=== PATIENT | female | born 1945 | race Caucasian/White ===

== ENCOUNTER → 2016-10-01 | Outpatient (CLI) | payer OTHER | LOC: FLAB 13:46 | PROVIDERS: ATTEND Physical Medicine & Rehabilitation | DX: M50.322 Other cervical disc degeneration at C5-C6 level (principal); M50.323 Other cervical disc degeneration at C6-C7 level ==

== ENCOUNTER → 2017-09-03 | Outpatient (CLI) | payer OTHER | LOC: CIMAGING 07:20 | PROVIDERS: ATTEND Family Medicine | DX: K80.20 Calculus of gallbladder without cholecystitis without obstruction (principal) | CPT/HCPCS: 76700-PO ==

== ENCOUNTER → 2018-05-06 | Outpatient (CLI) | payer OTHER | LOC: CIMAGING 07:56 | PROVIDERS: ATTEND Internal Medicine Cardiovascular Disease | DX: K80.20 Calculus of gallbladder without cholecystitis without obstruction (principal); K76.0 Fatty (change of) liver, not elsewhere classified; I34.0 Nonrheumatic mitral (valve) insufficiency; R09.89 Other specified symptoms and signs involving the circulatory and respiratory systems | CPT/HCPCS: 76700-PO ==

== ENCOUNTER 2018-06-27 21:09 | Observation (INO) | payer OTHER ==
--- NOTE | 2018-06-27 21:32 | EDPHY ---
H & P Time Seen by Provider: 06/27/18 21:31 HPI/ROS: Chief complaint. Racing heart HPI. Patient is 72-year-old female with fast heart rate that began this afternoon. She has some chest tightness that goes to the left scapula. No shortness of breath. No change with exertion however she does feel lightheaded. No fever cough. No unusual leg pain or swelling. Last night she had a sharp pain to her left scientology but did not have change in her vision slurred speech focal weakness or paresthesias. She took a hydrocodone. The headache was gone today and has not recurred. She does have a history of palpitations and takes metoprolol for this ROS 10 systems were reviewed and negative with the exception of the elements mentioned in the history of present illness Past Medical/Surgical History: Palpitations and depression Social History: , nonsmoker, no alcohol Physical Exam: General Appearance: Alert well-developed female mild distress vital signs significant for blood pressure 161/145 with heart rate 147 Eyes: Pupils equal and round no pallor or injection. ENT, Mouth: Mucous membranes are moist. Respiratory: There are no retractions, lungs are clear to auscultation. Cardiovascular: Irregularly irregular rate and rhythm Gastrointestinal: Abdomen is soft and nontender, no masses, bowel sounds normal. Neurological: Awake and alert, sensory and motor exams grossly normal. Skin: Warm and dry, no rashes. Musculoskeletal: Neck is supple nontender. Extremities symmetrical, full range of motion. Psychiatric: Patient is oriented X 3, there is no agitation. Constitutional: Initial Vital Signs Temperature (C) 36.6 C 06/27/18 21:26 Heart Rate 140 H 06/27/18 21:26 Respiratory Rate 20 06/27/18 21:26 Blood Pressure 196/143 H 06/27/18 21:26 O2 Sat (%) 96 06/27/18 21:26 O2 Delivery Mode Room Air Allergies/Adverse Reactions: No Known Allergies Allergy (Unverified 06/27/18 21:21) Home Medications: Medication Instructions Recorded Butal/Asp/Caffeine-Fiorinal 06/27/18 [Fiorinal 50-325-40 mg Cap] Hydrocodone/Acetaminophen [Vicodin 06/27/18 5-300 mg Tablet] Metoprolol Succinate Xr [Toprol Xl 06/27/18 25 mg (*)] Metoprolol Succinate Xr [Toprol Xl 06/27/18 25 mg (*)] Topical Thc 06/27/18 buPROPion [Wellbutrin 75mg (*)] 150 mg 06/27/18 lamoTRIgine [Lamictal] 06/27/18 traZODone [traZODONE 50MG (*)] 06/27/18 Medical Decision Making - Diagnostics EKG Interpretation: EKG interpreted by me shows atrial fibrillation with left axis deviation, LVH by voltage. PVCs are noted. Ventricular response 134 Imaging Results: Imaging Impressions Chest X-Ray 06/27/18 21:44 Impression: Suspect cardiomegaly. No evidence for failure. Procedures: IV normal saline, monitor Diltiazem bolus and drip ED Course/Re-evaluation: Point of care CBC shows a 4.8 for white blood cell count hematocrit is 41.6 Point of care metabolic panel shows a potassium of 3.1. Patient is given 20 mEq of potassium orally. Lovenox subcutaneously Patient, , and I discussed laboratory evaluation EKG findings, chest x- ray. We discussed treatment plan including recommendation for admission. They expressed understanding and agreement I consulted discussed case with Dr. Wesley, hospitalist, who agrees to the admission Differential Diagnosis: New onset atrial fibrillation with rapid ventricular rate. Patient apparently has a history of palpitations and has been on metoprolol for this. I considered acute coronary syndrome. She has a mildly low potassium. She has been given potassium supplementation. - Data Points Laboratory Results: 06/27/18 22:30 POC Sodium 141 mEq/L mEq/L (135-145) POC Potassium 3.1 mEq/L L mEq/L (3.3-5.0) POC Chloride 104.0 mEq/L mEq/L (97-110) POC Total CO2 28 mEq/L mEq/L (22-31) POC BUN 14 mg/dL mg/dL (7-23) POC Creatinine 0.6 mg/dL mg/dL (0.6-1.0) POC Glucose 79 mg/dL mg/dL (70-100) POC Calcium 9.8 mg/dL mg/dL (8.5-10.4) Medications Given: Discontinued Medications Diltiazem HCl (Cardizem 25 Mg/5 Ml Vial) 20 mg IVP EDNOW ONE Stop: 06/27/18 21:44 Last Admin: 06/27/18 21:58 Dose: 20 mg Diltiazem HCl 125 mg/ Sodium (Chloride) 125 mls @ 0 mls/hr IV EDNOW ONE; Titrate PRN Reason: Protocol Stop: 06/27/18 21:44 Last Admin: 06/27/18 22:19 Dose: 125 mls Sodium Chloride (Ns) 1,000 mls @ 0 mls/hr IV EDNOW ONE; Wide Open PRN Reason: Protocol Stop: 06/27/18 21:44 Last Admin: 06/27/18 21:56 Dose: 1,000 mls Point of Care Test Results: CBC CBC Collection Date 06/27/18 CBC Collection Time 21:27 WBC 4.84 RBC 4.07 HGB 14.1 HCT 41.6 PLT 182 Neut # 1.74 Neut 35.9 LYMPH # 2.39 LYMPH 49.4 MCV 102.2 Chemistry 06/27/18 22:30 POC Sodium 141 mEq/L mEq/L (135-145) POC Potassium 3.1 mEq/L L mEq/L (3.3-5.0) POC Chloride 104.0 mEq/L mEq/L (97-110) POC Total CO2 28 mEq/L mEq/L (22-31) POC BUN 14 mg/dL mg/dL (7-23) POC Creatinine 0.6 mg/dL mg/dL (0.6-1.0) POC Glucose 79 mg/dL mg/dL (70-100) POC Calcium 9.8 mg/dL mg/dL (8.5-10.4) Departure - Departure Disposition: [facility] Clinical Impression: Atrial fibrillation Qualifiers: Atrial fibrillation type: unspecified Qualified Code(s): I48.91 - Unspecified atrial fibrillation Condition: Fair
[2018-06-27] MEDS ORDERED: DILTIAZEM 125 MG/25 ML VIAL IV ONE (21:35)
[2018-06-27] MEDS ORDERED: DILTIAZEM 25 MG/5 ML VIAL IVP ONE ×2 (21:36→21:43)
[2018-06-27] MEDS ORDERED: DILTIAZEM 125 MG in NS 100 ML IV ONE (21:43)
[2018-06-27] MEDS ORDERED: NS 1,000 ML IV ONE (21:43)
[2018-06-27] MEDS ORDERED: POTASSIUM CL 20 MEQ TAB PO ONE (22:46)
[2018-06-27] MEDS ORDERED: ENOXAPARIN 60 MG/0.6 ML SYR SC ONE (22:50)
--- NOTE | 2018-06-27 23:09 | CPEKG ---
Test Reason : OPEN Blood Pressure : / mmHG Vent. Rate : 134 BPM Atrial Rate : 146 BPM P-R Int : 084 ms QRS Dur : 092 ms QT Int : 330 ms P-R-T Axes : -55 000 128 degrees QTc Int : 493 ms Atrial fibrillation Multiple ventricular premature complexes LVH with secondary repolarization abnormality Borderline prolonged QT interval Confirmed by Dawson Roman ([id number]) on 06/27/2018 11:08:53 PM Referred By: PHYSICIAN ED Confirmed By:Dawson Roman
[2018-06-28] MEDS ORDERED: ONDANSETRON 4 MG/2 ML VIAL IVP PRN (00:27)
[2018-06-28] MEDS ORDERED: ACETAMINOPHEN 325 MG TAB PO PRN (00:27)
[2018-06-28] MEDS ORDERED: ONDANSETRON DISINTEGRATING 4 MG TAB PO PRN (00:27)
[2018-06-28] MEDS ORDERED: DILTIAZEM 125 MG in D5W 125 ML IV SCH (00:30)
--- NOTE | 2018-06-28 01:08 | PDGENHP ---
History and Physical - Chief Complaint Palpitations - History of Present Illness 72 yo F w/ hx of MR (MVP) and PVCs presents with feeling of heart racing. The patient was in a movie when she felt her heart racing. She also felt nauseous. She tells me she has felt like this before but only for short periods that usually self-resolve. Today, however, her symptoms persisted so she presented to the [facility]. She denies recent illness, trauma, surgery, etc. She denies sick contacts as well. Of note, she has a hx of PVCs diagnosed via Holter monitor in October of 2017. Her symptoms improved with low dose beta amy. Her Holter monitor demonstrated AF. At the [facility] she was noted to be in AF w/ RVR on presentation. She is being admitted for management of this. Case discussed with Dr. Roman; records reviewed and summarized above. History Information - Allergies/Home Medication List Allergies/Adverse Reactions: No Known Allergies Allergy (Unverified 06/27/18 21:21) Home Medications: Butal/Asp/Caffeine-Fiorinal [Fiorinal 50-325-40 mg Cap] 06/27/18 [Last Taken Unknown] Hydrocodone/Acetaminophen [Vicodin 5-300 mg Tablet] 06/27/18 [Last Taken Unknown] Metoprolol Succinate Xr [Toprol Xl 25 mg (*)] 06/27/18 [Last Taken Unknown] Metoprolol Succinate Xr [Toprol Xl 25 mg (*)] 06/27/18 [Last Taken Unknown] Topical Thc 06/27/18 [Last Taken Unknown] buPROPion [Wellbutrin 75mg (*)] 150 mg 06/27/18 [Last Taken Unknown] lamoTRIgine [Lamictal] 06/27/18 [Last Taken Unknown] traZODone [traZODONE 50MG (*)] 06/27/18 [Last Taken Unknown] I have personally reviewed and updated: family history, medical history - Past Medical History Additional medical history: Mitral valve prolapse. PVCs - Surgical History Additional surgical history: Cataract surgery. Varicose vein ablation - Family History Positive for: CAD - Social History Smoking Status: Never smoked Review of Systems Review of Systems: ROS: 10pt was reviewed & negative except for what was stated in HPI & below Physical Exam Physical Exam: Temp Pulse Resp BP Pulse Ox 36.4 C 105 H 14 137/92 H 93 06/28/18 00:28 06/28/18 00:28 06/28/18 00:28 06/28/18 00:28 06/28/18 00:28 Constitutional: no apparent distress, not in pain Eyes: PERRL, EOMI Ears, Nose, Mouth, Throat: moist mucous membranes, no oral mucosal ulcers Cardiovascular: irregularly irregular, tachycardia Respiratory: no respiratory distress, clear to auscultation Gastrointestinal: normoactive bowel sounds, soft, non-tender abdomen Skin: warm, normal color Musculoskeletal: full muscle strength, no muscle tenderness Neurologic: AAOx3, CN II-XII Intact Psychiatric: interacting appropriately, not anxious Lab Data & Imaging Review POC Sodium 141 mEq/L (135-145) 06/27/18 22:30 POC Potassium 3.1 mEq/L (3.3-5.0) L 06/27/18 22:30 POC Chloride 104.0 mEq/L (97-110) 06/27/18 22:30 POC Total CO2 28 mEq/L (22-31) 06/27/18 22:30 POC BUN 14 mg/dL (7-23) 06/27/18 22:30 POC Creatinine 0.6 mg/dL (0.6-1.0) 06/27/18 22:30 POC Glucose 79 mg/dL (70-100) 06/27/18 22:30 POC Calcium 9.8 mg/dL (8.5-10.4) 06/27/18 22:30 POC Troponin I 0.02 ng/mL (0.00-0.08) 06/27/18 22:56 Imaging Review: Imaging Impressions Chest X-Ray 06/27/18 21:44 Impression: Suspect cardiomegaly. No evidence for failure. Visualized and Interpreted EKG results: Yes EKG Interpretation: Positive for: other (AF w/ RVR) Assessment & Plan Assessment: 72 yo F w/ hx of MR/MVP and PVCs presents with new AF w/ RVR. Plan: 1. Paroxysmal AF - New diagnosis for this patient; complicated by RVR on admission. She has prior hx of PVCs diagnosed via Holter monitor in October of 2017 but no prior AF hx. [id number] of 2 for only age and female sex. She is on low dose beta amy as outpatient for hx of PVCs. No symptoms to suggest ischemia or heart failure at this time. 09/02 stress test did not reveal ischemia. - Admit to PCU for observation - Continue diltiazem drip for rate control overnight - Monitor on telemetry - Can likely increase oral metoprolol once controlled - S/p Lovenox in the ED, will repeat dose in the morning - Noting hx of valvular AF and patient follows with Dr. Cooper, I will consult cardiology to help consider appropriate anticoagulation and cardioversion if necessary - Check TSH 2. Hx PVCs - On low dose beta amy as outpatient. 3. Hx mitral regurgitation - Due to bileaflet MV prolapse. 4. Depression, anxiety - Continue home meds pending reconciliation Diet - Regular Code - Full Ppx - Lovenox Dispo - Admit under observation status
[2018-06-28] MEDS ORDERED: DILTIAZEM HCL/D5W 125 ML IV SCH (01:30)
[2018-06-28 04:23] LABS: PLATELET COUNT 158 10^3/uL (150-400)
[2018-06-28 07:48] VITALS: BP 114/66
[2018-06-28] MEDS ORDERED: ENOXAPARIN 60 MG/0.6 ML SYR SC ONE (09:00)
--- NOTE | 2018-06-28 11:25 | ASMTLACE ---
[place] Length of stay for Answers: Less than 1 day current admission Acuity / Level of Answers: No Care: Did the patient have an inpatient admission? Comorbidities - select Answers: Other Notes: mitral valve all that apply prolapse, PVCs # of Emergency department Answers: 1-2 visits in the last 6 months Social determinants Answers: Mental health diagnosis (anxiety, depression, pers onality disorders, etc.) Score: 5 Date Signed: 06/28/2018 11:24 AM Electronically Signed By:DAPHNIE Camacho
--- NOTE | 2018-06-28 11:35 | ASMTDCNOTE ---
Case Management Discharge Discharge Order Complete? Answers: Yes Patient to Obtain Answers: Independently Medications Transportation Arranged Answers: Family/Friends Discharge Comments Notes: Pt was admitted with afib. She has a hx of MVP, PVCs. She was monitored overnight and is discharging home today with her and no CM needs. She will follow up with outpatient cardiology. Date Signed: 06/28/2018 11:35 AM Electronically Signed By:DAPHNIE Camacho
--- NOTE | 2018-06-28 11:54 | PDDCSUM ---
Discharge Summary Discharge Summary: Date of Admission: 06/27/2018 Date of Discharge: 06/28/2018 Followup: Cardiology, Dr. Cooper Hospital Course Problem List: 72 yo F w/ hx of MR/MVP and PVCs presents with new AF w/ RVR. Plan: 1. Paroxysmal AF - New diagnosis for this patient; complicated by RVR on admission. She has prior hx of PVCs diagnosed via Holter monitor in October of 2017 but no prior AF hx. [id number] of 2 for only age and female sex. She is on low dose beta amy as outpatient for hx of PVCs. No symptoms to suggest ischemia or heart failure at this time. 09/02 stress test did not reveal ischemia. - Spontaneously converted with diltiazem drip - Monitored on telemetry - Restarted home metoprolol - Noting hx of valvular AF and patient follows with Dr. Cooper, patient wishes to defer and discuss AC with him in the outpatient setting 2. Hx PVCs - On low dose beta amy as outpatient. 3. Hx mitral regurgitation - Due to bileaflet MV prolapse. 4. Depression, anxiety - Continue home meds Time spent on discharge was >35 minutes with >50% of time spent on patient education and counseling.
--- NOTE | 2018-06-30 11:49 | CPEKG ---
Test Reason : OPEN Blood Pressure : / mmHG Vent. Rate : 138 BPM Atrial Rate : 138 BPM P-R Int : 186 ms QRS Dur : 092 ms QT Int : 343 ms P-R-T Axes : 000 001 095 degrees QTc Int : 520 ms Atrial fibrillation Repol abnrm suggests ischemia, diffuse leads Prolonged QT interval Confirmed by Jeronimo Coleman ([id number]) on 06/30/2018 11:48:46 AM Referred By: Alexei Wesley Confirmed By:Jeronimo Coleman
== END 2018-06-28 11:10 | disposition home or self-care (01) ==
LOC: CED 21:09 → CEDHOLD 22:51 → INTOOBSV 22:51 → F2W 06-28 00:13
PROVIDERS: ADMIT Student in an Organized Health Care Education/Training Program; ATTEND Internal Medicine
DX: I48.0 Paroxysmal atrial fibrillation (principal); I49.3 Ventricular premature depolarization; E86.9 Volume depletion, unspecified; I34.0 Nonrheumatic mitral (valve) insufficiency; F32.9 Major depressive disorder, single episode, unspecified; F41.9 Anxiety disorder, unspecified; Z82.49 Family history of ischemic heart disease and other diseases of the circulatory system
CPT/HCPCS: 71045; 93005; G0378; 80048-ER; 84484-ER; 96365; 96372-ER; 96375-ER; 96376-ER; J1650

== ENCOUNTER 2018-08-19 12:14 | Day surgery (SDC) | payer OTHER ==
[2018-08-19] MEDS ORDERED: FAMOTIDINE 20 MG TAB PO ONE (12:16)
[2018-08-19] MEDS ORDERED: ASPIRIN EC 325 MG TAB PO ONE (12:16)
[2018-08-19] MEDS ORDERED: NS 1,000 ML IV ONE (12:16)
--- NOTE | 2018-08-19 12:36 | CPEKG ---
Test Reason : OPEN Blood Pressure : / mmHG Vent. Rate : 059 BPM Atrial Rate : 059 BPM P-R Int : 145 ms QRS Dur : 095 ms QT Int : 484 ms P-R-T Axes : 059 001 065 degrees QTc Int : 480 ms Sinus rhythm Borderline left atrial enlargement Non-specific ST depresion anterior-lateral leads. Confirmed by Lior Cooper ([id number]) on 08/19/2018 12:36:19 PM Referred By: Barry Salas Confirmed By:Lior Cooper
[2018-08-19 12:55] LABS: PLATELET COUNT 159 10^3/uL (150-400)
[2018-08-19 13:24] LABS: INR 1.06 (0.83-1.16); PROTIME(PATIENT) 13.4 SEC (12.0-15.0)
--- NOTE | 2018-08-19 14:37 | PDCONSULT ---
Mission Coordinator Note: Patient was scheduled for WILIAM, RHC and LHC today with me as an outpatient. Questions about severity of the mitral valve (known to be "moderate" with bileaflet prolapse) and recent bout of pAF. Stress testing about one year ago with DTS of +9. No wale cardiovascular complaints. Patient is on Eliquis, and took dose yesterday morning. Long discussion with patient and about the risk associated without 48 hour hold on this therapy - for the LHC in particular. There does not appear to be an urgency to having these procedures performed, and the patient and would like to have the 48 hour period off Eliquis to have one round of sedation with these two procedures. Risks and benefits of the procedures were discussed. In speaking with the patient, there was a concern about abdominal pains and weight loss voiced. Pain localizes to the left and central subcostal/xyphoid region. Diarrhea has also been noted in association with some PO food intake. No GI evaluation has been performed. Recommendations for patient to schedule the WILIAM, RHC, and LHC off Eliquis for 48 hours. Would consider discussion about the abdominal symptoms with PCP and/ or GI. My nurse will contact the patient to arrange a time and date for aforementioned procedures. Patient and were in agreement with these plans, and were not interest in the elevated risk for bleeding on Eliquis therapy given a lack of acute symptoms.
== END 2018-08-19 14:05 | disposition home or self-care (01) ==
LOC: FCATH 12:14
PROVIDERS: ATTEND Internal Medicine Cardiovascular Disease
DX: I48.0 Paroxysmal atrial fibrillation (principal); Z53.8 Procedure and treatment not carried out for other reasons; I34.0 Nonrheumatic mitral (valve) insufficiency; F41.9 Anxiety disorder, unspecified; I11.9 Hypertensive heart disease without heart failure; Z82.49 Family history of ischemic heart disease and other diseases of the circulatory system

== ENCOUNTER 2018-08-27 08:51 | Day surgery (SDC) | payer OTHER ==
[2018-08-27] MEDS ORDERED: FAMOTIDINE 20 MG TAB PO ONE (08:56)
[2018-08-27] MEDS ORDERED: DIAZEPAM 5 MG TAB PO ONE (08:56)
[2018-08-27] MEDS ORDERED: BENZOCAINE UNIT DOSE SPRAY HURRICAINE MM ONE (08:56)
[2018-08-27] MEDS ORDERED: NS 500 ML IV ONE (08:56)
[2018-08-27] MEDS ORDERED: fentaNYL 100 MCG/2 ML INJ IVP ONE (08:56)
[2018-08-27] MEDS ORDERED: ASPIRIN EC 325 MG TAB PO ONE (08:56)
[2018-08-27] MEDS ORDERED: diphenhydrAMINE 25 MG CAP PO ONE (08:56)
[2018-08-27] MEDS ORDERED: NS 1,000 ML IV ONE (08:56)
[2018-08-27] MEDS ORDERED: MIDAZOLAM 2 MG/2 ML VIAL IVP ONE (08:56)
[2018-08-27 09:34] LABS: PLATELET COUNT 157 10^3/uL (150-400)
[2018-08-27 09:42] LABS: PROTIME(PATIENT) 12.8 SEC (12.0-15.0)
[2018-08-27] MEDS ORDERED: LIDOCAINE 2% 2 ML INJ ONE (10:11)
[2018-08-27] MEDS ORDERED: PROPOFOL 200 MG/20 ML VIAL ONE ×2 (10:11)
[2018-08-27] MEDS ORDERED: LIDOCAINE 1% 300 MG/30 ML SDV ONE (10:19)
[2018-08-27] MEDS ORDERED: MIDAZOLAM 2 MG/2 ML VIAL ONE (10:19)
[2018-08-27] MEDS ORDERED: fentaNYL 100 MCG/2 ML INJ ONE (10:19)
[2018-08-27] MEDS ORDERED: IOPAMIDOL (ISOVUE-370) 150 ML BTL IV ONE (10:19)
--- NOTE | 2018-08-27 10:27 | PDANEPAE ---
ANE Past Medical History - Cardiovascular History Hx Arrhythmias: Yes Hx CHF / Valvular Disease: Yes - Pulmonary History Hx Oxygen in Use at Home: No Hx Sleep Apnea: No - Neurologic History Hx Cerebrovascular Accident: No - Endocrine History Hx Diabetes: No - Renal History Hx Renal Disorders: No - Liver History Hx Hepatic Disorders: No - Neurological & Psychiatric Hx Hx Neurological and Psychiatric Disorders: No - Cancer History Hx Cancer: No - Congenital Disorder History Hx Congenital Disorders: No - GI History GERD: no - Chronic Pain History Chronic Pain: No ANE Review of Systems Review of Systems: ANE Patient History - Allergies Allergies/Adverse Reactions: No Known Allergies Allergy (Verified 08/23/18 09:37) - Home Medications Home Medications: Butal/Asp/Caffeine-Fiorinal [Fiorinal 50-325-40 mg Cap] 1 each PO DAILY PRN 03/05 [Last Taken Unknown] Herbals/Supplements -Info Only 1 ea PO DAILY 06/27/18 [Last Taken Unknown] Metoprolol Succinate Xr [Toprol Xl 25 mg (*)] 25 mg PO DAILY 06/27/18 [Last Taken 06/27/18] lamoTRIgine [Lamictal] 150 mg PO HS 06/27/18 [Last Taken 06/26/18] traZODone [traZODONE 50MG (*)] 50 mg PO HS 06/27/18 [Last Taken 06/26/18] Carboxymethylcellulose 1% [Refresh Celluvisc (*)] 1 drop EACHEYE DAILY PRN 06/28 [Last Taken Unknown] Webb-3 Fatty Acids [Fish Oil 1000 mg (*)] 1,000 mg PO DAILY 06/28/18 [Last Taken Unknown] buPROPion XL [Wellbutrin 150mg XL] 150 mg PO HS 06/28/18 [Last Taken 06/26/18] Apixaban [Eliquis] 5 mg PO BID 08/12/18 [Last Taken 08/24/18] - Smoking Hx Smoking Status: Never smoked ANE Labs/Vital Signs - Labs Result Diagrams: 08/27/18 09:25 08/27/18 09:25 - Vital Signs Height: 173 cm Weight: 58.1 kg ANE Physical Exam - Airway Neck exam: FROM Mallampati Score: Class 1 Mouth exam: normal dental/mouth exam - Pulmonary Pulmonary: no respiratory distress, no rales or rhonchi, clear to auscultation - Cardiovascular Cardiovascular: regular rate and rhythym, no murmur, rub, or gallop - ASA Status ASA Status: III ANE Anesthesia Plan Anesthesia Plan: GA with mask Total IV Anesthesia: Yes
--- NOTE | 2018-08-27 10:27 | POSTANESTH ---
Post Anesthetic Evaluation Cardiovascular Status: Normal, Stable Respiratory Status: Normal, Stable Level of Consciousness/Mental Status: Can Participate in Eval Pain Control: Adequate, Prn Tx Ordered Nausea/Vomiting Control: Adequate, Prn Tx Ordered Complications Possibly Related to Anesthesia: None Noted
--- NOTE | 2018-08-27 10:43 | PDHPUP ---
History & Physical Update H&P update statement: This history and physical update is based on an assessment of the patient which was completed after admission or registration (within 24 hours), but prior to the surgery/procedure. H&P update: H&P reviewed & patient examined, no change in patient's condition since H&P completed
--- NOTE | 2018-08-27 11:36 | PDPROPOC ---
Sedation Plan of Care ASA Classification: ASA 1 Planned drugs: fentanyl, midazolam Mallampati Score: Class 1 Mallampati Reference Image: Patient passed 3-3-2 rule?: Yes
[2018-08-27] MEDS ORDERED: ATROPINE SULFATE 1 MG/10 ML SYR IVP PRN (12:09)
[2018-08-27] MEDS ORDERED: NITROGLYCERIN 0.4 MG BTL SL PRN (12:09)
[2018-08-27] MEDS ORDERED: HYDROCODONE/APAP 5/325 TAB PO PRN (12:09)
[2018-08-27] MEDS ORDERED: OXYCODONE/APAP 5/325 TAB PO PRN (12:09)
[2018-08-27] MEDS ORDERED: ONDANSETRON 4 MG/2 ML VIAL IVP PRN (12:09)
--- NOTE | 2018-08-27 12:23 | PDDXCAT ---
Diagnostic Cath Note - . Date: 08/27/18 Recruiter Account Manager: Timothy Indication: other (Symptoms of dyspnea, atrial fibrillation, considerations of mitral valve repair surgery.) - Procedure Access: right groin Procedure: left heart catheterization, coronary angiography, right heart catheterization - Materials Left Heart Cath size: 6F Left Heart Cath materials: standard multipack (JL4, JR4, pigtail) Right Heart Cath size: 7F Right Heart Cath materials: PWP catheter - Findings-Left Heart Catheterization LM: Short, moderate caliber vessel with appropriate bifurcations into the LAD and circumflex. Angiographically free of disease. LAD: Moderate caliber transapical vessel. Luminal irregularities throughout. 30% ostial lesion. Paucity of significant diagonal branches. LCX: Large caliber vessel. Single bifurcating obtuse marginal branch. No obstructive lesions. RCA: Moderate caliber vessel. The PDA and 2 small posterolateral branches are noted. Angiographically free of disease. EDP: 147/10/21 mmHg. LVEF: 70%. Wall motion: Normal. - Findings-Right Heart Catheterization RA: 7 mmHg. 75.2% saturation. RV: 31/2/11 mmHg. PA: 31/9/18 mmHg. 74.9% saturation. PAOP: 11 mmHg. AO: 125/54/84 mmHg. CO: 4.69 liters/minute. CI: 2.77 liters/minute per meter squared. Complications: None. Estimated blood loss: <50ml Closure method: Angioseal Assessment: 1. Minimal CAD characterized by a 30% ostial LAD lesion. 2. Hyperdynamic LV systolic function without regional wall motion abnormalities. 3. Well compensated right heart hemodynamics. 4. 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 Plan: Patient will be followed longitudinally in clinic. Intervention: None. Patient Problems: Problems Problem Status Onset Atrial fibrillation Acute
--- NOTE | 2018-08-27 17:49 | CPEKG ---
Test Reason : OPEN Blood Pressure : / mmHG Vent. Rate : 056 BPM Atrial Rate : 056 BPM P-R Int : 147 ms QRS Dur : 092 ms QT Int : 506 ms P-R-T Axes : 069 001 070 degrees QTc Int : 489 ms Sinus rhythm Low voltage, extremity leads Borderline prolonged QT interval Confirmed by Harvey Quiñonez ([id number]) on 08/27/2018 5:49:13 PM Referred By: Barry Salas Confirmed By:Harvey Quiñonez
--- NOTE | 2018-08-27 18:30 | ECHO ---
[email or web address] [id number] Main: [phone] Echocardiography Examination Transesophageal Name: MANUEL WILLIAM MR#: [id number] Study Date: 08/27/2018 Study Time: 10:25 AM Date of : 1945 Age: 73 year(s) Height: 172.7 cm (68 in.) Weight: 58.97 kg (130 lb.) BSA: 1.7 m2 Gender: Female Examination: WILIAM Contrast: Image Quality: Adequate Rhythm: Heart Rate: BP: 154 mmHg/76 mmHg Indication: Eval mitral valve Procedure Staff Referring Physician: Chief Librarian Branch Or Department: [place] [facility] Reading Physician: Anuel Aguirre MD Requesting Provider: Ordering Physician: Barry Salas MD Indication: Eval mitral valve Acute complication: None Conclusions Normal left ventricular size and systolic function. LVEF estimated to be 65-70%. Normal left ventricular free wall thickness. No regional wall motion abnormalities. Normal atrial dimensions. Intact interatrial septum on color flow, 2 dimensional Doppler imaging and agitated saline contrast study. 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 This is associated with moderate mitral regurgitation. Trileaflet aortic valve without stenosis or insufficiency. Structurally normal tricuspid valve with mild tricuspid regurgitation. Findings Left Ventricle: Normal global systolic left ventricular function. Left Atrium Appendage: No thrombus is identified. IAS: An agitated saline study was performed and was negative for intracardiac shunting. Mitral Valve: Borderline mitral valve prolapse of both leaflets. 2 separate jets of moderate mitral regurgitation.. Aortic Valve: No aortic valve regurgitation. The aortic valve is trileaflet. Tricuspid Valve: Tricuspid valve leaflets are structurally normal. Patient: MANUEL WILLIAM Study Date: 08/27/2018 Page 1 of 2 10:25 AM Exam Details Procedure Ordered: WILIAM Procedure Status: Routine study Image Quality: Adequate Consent: Risks, alternatives of procedure explained to patient, informed consent obtained Probe Insertion: Attending oxyacetylene welder Facility Location: Cardiac Echo 1 (No Signature Object) Patient: MANUEL WILLIAM Study Date: 08/27/2018 Page 2 of 2 10:25 AM [id number]
== END 2018-08-27 16:32 | disposition home or self-care (01) ==
LOC: FCATH 08:51
PROVIDERS: ATTEND Emergency Medicine
PROC: B2151ZZ Fluoroscopy of Left Heart using Low Osmolar Contrast (ICD-10-PCS; principal; 2018-08-27)
PROC: B2111ZZ Fluoroscopy of Multiple Coronary Arteries using Low Osmolar Contrast (ICD-10-PCS; principal; 2018-08-27)
PROC: B245ZZ4 Ultrasonography of Left Heart, Transesophageal (ICD-10-PCS; principal; 2018-08-27)
PROC: 4A023N8 Measurement of Cardiac Sampling and Pressure, Bilateral, Percutaneous Approach (ICD-10-PCS; principal; 2018-08-27)
DX: I48.0 Paroxysmal atrial fibrillation (principal); I34.0 Nonrheumatic mitral (valve) insufficiency; I25.10 Atherosclerotic heart disease of native coronary artery without angina pectoris; I11.9 Hypertensive heart disease without heart failure; Z85.828 Personal history of other malignant neoplasm of skin
CPT/HCPCS: C1760; J1644; J2250; J2704; J3010; Q9967